=== PATIENT | male | born 1935 | race Hispanic/Latino ===

== ENCOUNTER 2018-09-27 14:39 | Inpatient (IN) | payer MEDICARE ==
[2018-09-27 14:40] VITALS: BMI 22.1
--- NOTE | 2018-09-27 15:15 | C.PDOC ---
History Of Present Illness 83 year old male presents with new onset neck mass for the past one month. Patient states it was "totally normally" a month ago, now a rapidly growing mass. He denies any pain, reports being able to eat solid food and drink without difficulty. Denies weight loss, SOB, difficulty breathing. Patient reports using unknown "thyroid supplement" and "wave emitting machine" without any improvement. Patient is a nonsmoker. NEW ONSET NECK MASS X 1 MO. PS WAS "TOTALLY NORMALLY" A MONTH AGO, NOW RAPIDLY GROWING MASS. PT DENIES PAIN. ABLE TO EAT SOLID FOOD AND DRINK WO DIFF. NO WT LOSS. DENIES SOB, DIFF BREATHING. PS USING UNK "THYROID SUPPLEMENTS" AND "WAVE EMITTING MACHINE" WO IMPROVE. NO SMOKER EXAM NONTOXIC NAD HEENT DIFFUSE POOR DENTITION NECK +ANTERIOR LAT L NECK MASS SOFTBALL SIZE, SOFT. NONADHERENT. NONPULSATILE. NONTENDER. NO STRIDOR, DROOL. FULL ROM WO DIFF REMAINDER NEG Time Seen by Provider: 09/27/18 15:01 Chief Complaint (Nursing): Abnormal Skin Integrity History Per: Patient History/Exam Limitations: no limitations Onset/Duration Of Symptoms: Days Current Symptoms Are (Timing): Still Present Recent travel outside of the [place]: No Past Medical History Reviewed: Historical Data, Nursing Documentation, Vital Signs Vital Signs: Last Vital Signs Temp 98.8 F 09/27/18 14:42 Pulse 102 H 09/27/18 14:42 Resp 18 09/27/18 14:42 BP 162/92 H 09/27/18 14:42 Pulse Ox 96 09/27/18 14:42 Primary Care Provider: FAMILY PROVIDER,NO - Medical History PMH: Benign Prostatic Hyperplasia Denies: Diabetes - [facility] Procedures ENDOSC POLYPECTOMY OF LG INTEST (05/24/13) INJECT/INFUSE NEC (05/24/13) INSERT INDWELLING CATH (01/04/15) PACKED CELL TRANSFUSION (05/24/13) REMOV URIN DRAINAGE NEC (01/13/15) TETANUS TOXOID ADMINIST (10/26/13) Family History: States: Unknown Family Hx - Social History Hx Tobacco Use: No Hx Alcohol Use: No Hx Substance Use: No - Immunization History Hx Tetanus Toxoid Vaccination: No Hx Influenza Vaccination: No Hx Pneumococcal Vaccination: No Review Of Systems Except As Marked, All Systems Reviewed And Found Negative. Constitutional: Negative for: Weight loss Respiratory: Negative for: Shortness of Breath, Other (Difficulty breathing) Musculoskeletal: Positive for: Other (Neck mass). Negative for: Neck Pain Physical Exam - Physical Exam Appears: Non-toxic Skin: Normal Color, Warm Head: Atraumatic, Normacephalic Eye(s): bilateral: Normal Inspection Ear(s): Bilateral: Normal Nose: Normal Oral Mucosa: Moist, No Drooling Teeth: Other (Diffuse poor dentition) Throat: Normal, No Erythema, No Exudate Neck: Other (Positive anterior lateral left sided mass softball size, soft, nonadherent, nonpulsatile, nontender. Full ROM without difficulty) Chest: Symmetrical, No Tenderness Cardiovascular: Rhythm Regular Respiratory: Normal Breath Sounds, No Accessory Muscle Use, No Rales, No Rhonchi, No Stridor, No Wheezing Gastrointestinal/Abdominal: Soft, No Tenderness Neurological/Psych: Oriented x3, Normal Speech ED Course And Treatment - Laboratory Results Result Diagrams: 09/27/18 15:26 09/27/18 15:26 ECG: Interpreted By Hi ECG Rhythm: Sinus Rhythm ECG Interpretation: Normal Rate From EC O2 Sat by Pulse Oximetry: 96 (Room air) Pulse Ox Interpretation: Normal - Radiology CXR: Interpreted by Hi CXR Interpretation: Yes: No Acute Disease Progress - Re-Evaluation Re-evaluation Note: 09/27/18 17:07 EXAM UNCH FROM INITIAL. ELIAS PHELAN PT AGREES W PLAN. D/W DR URSULA HANCOCK TELEMARKETER WILL ADMIT - Data Reviewed Data Reviewed: Lab, Diagnostic imaging, EKG, Old records Medical Decision Making Medical Decision Making: Plan: * CT Neck soft tissue * Blood work * CXR Disposition Counseled Patient/Family Regarding: Studies Performed, Diagnosis - Disposition Disposition: HOSPITALIZED Disposition Time: 17:07 Condition: STABLE - POA Present On Arrival: None - Clinical Impression Clinical Impression: Neck mass - Scribe Statement The provider has reviewed the documentation as recorded by the Scribgianni Colunga All medical record entries made by the Scribe were at my direction and personal ly dictated by me. I have reviewed the chart and agree that the record accurately reflects my personal performance of the history, physical exam, medical decision making, and the department course for this patient. I have also personally directed, reviewed, and agree with the discharge instructions and disposition.
[2018-09-27 15:29] LABS: BASO # 0.1 K/uL (0.0-0.2); EOS # 0.1 K/uL (0.0-0.7); EOS % 0.8 % (0.0-4.0); HEMOGLOBIN 10.9 g/dL (12.0-18.0); LYMPH # 1.5 K/uL (1.0-4.3); LYMPH % 16.2 % (20.0-40.0); MEAN CELL VOLUME 73.2 fL (80.0-94.0); MEAN CORPUSCULAR HEMOGLOBIN 23.5 pg (27.0-31.0); MEAN CORPUSCULAR HGB CONC 32.1 g/dL (33.0-37.0); MEAN PLATELET VOLUME 9.1 fL (7.2-11.7); MONO # 0.8 K/uL (0.0-0.8); MONO % 9.2 % (0.0-10.0); NEUT # 6.7 K/uL (1.8-7.0); NEUT % 72.8 % (50.0-75.0); RBC 4.63 Mil/uL (4.40-5.90); RED CELL DISTRIBUTION WIDTH 16.4 % (11.5-14.5); WHITE BLOOD COUNT 9.2 K/uL (4.8-10.8)
[2018-09-27 15:37] LABS: INR 1.1; PARTIAL THROMBOPLASTIN TIME 27.6 SECONDS (21-34); PROTHROMBIN TIME 12.5 SECONDS (9.7-12.2)
[2018-09-27 15:42] LABS: ALB/GLOB RATIO 1.4 (1.0-2.1); ALBUMIN 4.4 g/dL (3.5-5.0); CALCIUM 9.2 mg/dl (8.6-10.4)
[2018-09-27 15:44] LABS: VENOUS BLOOD GAS BASE EXCESS 1.7 mmol/L (0.0-2.0); VENOUS BLOOD GAS PCO2 42 mmHg (40-60); VENOUS BLOOD GAS PO2 39 mm/Hg (30-55); VENOUS BLOOD PH 7.41 (7.32-7.43)
[2018-09-27 15:58] LABS: FREE T4 1.1 ng/dL (0.78-2.19)
[2018-09-27] MEDS ORDERED: Iodixanol 320 MG/ML 100 ML BOTTLE IV ONE (16:17)
--- NOTE | 2018-09-27 17:00 | CT ---
Date of service: 09/27/2018 PROCEDURE: CT NECK WITH CONTRAST HISTORY: L NECK MASS COMPARISON: None available. TECHNIQUE: CT of the neck with intravenous contrast. Coronal and sagittal reformats generated. Intravenous contrast dose: 100 mL of Visipaque 320 intravenously. Radiation dose: Total exam DLP = 541.95 mGy-cm. This CT exam was performed using one or more of the following dose reduction techniques: Automated exposure control, adjustment of the mA and/or kV according to patient size, and/or use of iterative reconstruction technique. FINDINGS: NASOPHARYNX: Unremarkable. SUPRAHYOID NECK: The suprahyoid neck is displaced to the right by large left neck mass. Otherwise unremarkable oropharynx, oral cavity, parapharyngeal space and retropharyngeal space. INFRAHYOID NECK: The infrahyoid neck is also displaced to the right by left neck mass. Otherwise unremarkable larynx, hypopharynx, and supraglottic space. Vocal cords intact. MASS: There is a large heterogeneous mass lesion contains enhancing solid component and heterogeneous low attenuation components extending from the left clavicle to left upper neck submental region measures 11.5 centimeter in the longitudinal diameter 13.2 centimeter in the largest AP diameter and 10.8 centimeter in the transverse diameter. The mass is crossing the midline at the level of the thyroid cartilage. There are prominent vessels in the peripheral and central portion of the mass. This mass is separate from the parotid submandibular glands and separate from the thyroid gland. GLANDS: Parotid and submandibular glands unremarkable. Normal size thyroid gland, without nodule. LYMPH NODES: No evidence of significant lymphadenopathy in the neck. CERVICAL SPINE: No fracture or focal lesion. VASCULAR STRUCTURES: Unremarkable. OTHER FINDINGS: None. IMPRESSION: Large heterogeneous enhancing mass in the left neck extending from the left clavicle to the left submental region contains slightly prominent vessels especially in the peripheral lateral aspect of the mass. This mass displaced the carotid arteries and the larynx and pharynx to the right. The mass is separate from the submandibular and parotid gland as well as from the left thyroid lobe. No evidence of significant lymphadenopathy in the neck. The upper airway is displaced to the right but otherwise patent.
--- NOTE | 2018-09-27 17:52 | RAD ---
Date of service: 09/27/2018 HISTORY: SOB COMPARISON: 05/25/2014 TECHNIQUE: Chest PA and lateral views FINDINGS: LUNGS: No evidence of new infiltrate or consolidation in the lungs. PLEURA: No significant pleural effusion identified. No pneumothorax apparent. CARDIOVASCULAR: No aortic atherosclerotic calcification present. Normal cardiac size. No pulmonary vascular congestion. OSSEOUS STRUCTURES: No significant abnormalities. VISUALIZED UPPER ABDOMEN: Normal. OTHER FINDINGS: None. IMPRESSION: No active disease.
[2018-09-27 18:54] VITALS: RESP 20
[2018-09-27] MEDS: ceFAZolin 1 GM in Sodium Chloride 0.9% 100 ML IVPB SCH (22:04)
[2018-09-28] MEDS: ceFAZolin 1 GM in Sodium Chloride 0.9% 100 ML IVPB SCH ×3 (05:00→21:15)
[2018-09-28] MEDS: Enoxaparin 30 mg Syringe SC SCH (10:53)
--- NOTE | 2018-09-28 22:00 | CP.PCM.HP ---
Present on Admission - Present on Admission Any Indicators Present on Admission: No Past Patient History - Past Medical History & Family History Past Medical History?: No - Past Social History Smoking Status: Never Smoked - MUSCULOSKELETAL/RHEUMATOLOGICAL Hx Falls: No - GENITOURINARY/GYNECOLOGICAL Hx Prostate Problems: Yes (ELEVATED PSA,BENIGN BIOPSY) - PSYCHIATRIC Hx Psychophysiologic Disorder: No Hx Substance Use: No - SURGICAL HISTORY Hx Surgeries: No - ANESTHESIA Hx Anesthesia: No Hx Anesthesia Reactions: No Hx Malignant Hyperthermia: No Has any member of the family had a problem w/ anesthesia?: No Meds Allergies/Adverse Reactions: Allergies Allergy/AdvReac Type Severity Reaction Status Date / Time No Known Allergies Allergy Verified 09/27/18 14:46 Results - Vital Signs Recent Vital Signs: Last Vital Signs Temp 98.4 F 09/28/18 16:00 Pulse 67 09/28/18 16:00 Resp 20 09/28/18 16:00 BP 148/79 09/28/18 16:00 Pulse Ox 97 09/28/18 16:00 - Labs Result Diagrams: 09/27/18 15:26 09/27/18 15:26
[2018-09-29] MEDS: ceFAZolin 1 GM in Sodium Chloride 0.9% 100 ML IVPB SCH (05:25)
--- NOTE | 2018-09-29 07:02 | HP ---
CHIEF COMPLAINT: Swelling in the neck for one month. HISTORY OF PRESENT ILLNESS: This is an 83-year-old white male who was previously healthy with no significant past medical history. A month ago, he was fine with no problem. Now, he has a rapidly growing mass in the left side of the neck and entire anterior neck. He denies any pain. He denies any history of injury to the neck. He denies any fever, chills, or rigors. He denies any history of weight loss. He denies any pain in the mass. He denies any nausea, vomiting, or diarrhea. He denies any polyuria, polydipsia, or polyphagia. He denies any weight loss. He denies any hematuria or pyuria. He denies any history of itchy eyes or itchy nose. He denies abdominal pain, nausea, vomiting, or diarrhea. PAST MEDICAL HISTORY: Nothing significant. SOCIAL HISTORY: Nonsmoker. Non EtOH user. CURRENT MEDICATIONS: None. FAMILY HISTORY: Noncontributory. PHYSICAL EXAMINATION: GENERAL: An elderly male, in no distress. VITAL SIGNS: Blood pressure 148/79, pulse 67, respiratory rate 20, temperature 98.4. SKIN: Normal. HEENT: Atraumatic, normocephalic. Negative pallor. Negative jaundice. Extraocular movements are intact. NECK: Supple. The patient has a large mass, which is in the size of a tennis ball, which is circular on left anterior neck, which is soft, which is compressible, nontender, no solid structure, no tenderness, no redness. CHEST WALL: Bilateral symmetrical expansion. LUNGS: Clear. No rales. No rhonchi. CARDIOVASCULAR SYSTEM: S1 and S2, regular. ABDOMEN: Soft and nontender. Bowel sounds are positive. RECTAL: Negative. EXTREMITIES: Normal. CENTRAL NERVOUS SYSTEM: Normal. ASSESSMENT: 1. Neck mass, rule out obstructed salivary duct with salivary gland swelling due to retention of the saliva, rule out sebaceous cyst. 2. Anemia. PLAN: Admit. Detailed orders are written. Seen and examined. Benson Mccray MD [facility] # [id number]
[2018-09-29 08:32] VITALS: BP 141/82; PULSE 77; TEMP 97.8; O2SAT 95
[2018-09-29] MEDS: Enoxaparin 30 mg Syringe SC SCH (11:08)
--- NOTE | 2018-09-29 11:48 | CP.PCM.PN ---
Subjective - Date & Time of Evaluation Date of Evaluation: 09/29/18 Time of Evaluation: 11:48 - Subjective Subjective: alert, orientedx3, has large neck mass, no respiratory distress. Objective - Vital Signs/Intake and Output Vital Signs (last 24 hours): Temp Pulse Resp BP Pulse Ox 97.8 F 77 20 141/82 95 09/29/18 08:31 09/29/18 08:31 09/29/18 08:31 09/29/18 08:31 09/29/18 08:31 Intake and Output: 09/29/18 09/29/18 06:59 18:59 Intake Total 1100 Output Total 1200 Balance -100 - Medications Medications: Current Medications Acetaminophen (Tylenol 325mg Tab) 650 mg PO Q6 PRN PRN Reason: Pain, moderate (4-7) Enoxaparin Sodium (Lovenox) 30 mg SC DAILY [facility] Last Admin: 09/29/18 11:08 Dose: 30 mg Cefazolin Sodium 1 gm/ Sodium (Chloride) 100 mls @ 100 mls/hr IVPB Q8H [facility]; Protocol Last Admin: 09/29/18 05:25 Dose: 100 mls/hr Pneumococcal Polyvalent Vaccine (Pneumovax 23 Vaccine) 0.5 ml IM .ONCE ONE Stop: 09/30/18 10:01 - Labs Labs: 09/27/18 15:26 09/27/18 15:26 PT 12.5 SECONDS (9.7-12.2) H 09/27/18 15:26 INR 1.1 09/27/18 15:26 APTT 27.6 SECONDS (21-34) 09/27/18 15:26 Assessment and Plan - Assessment and Plan (Free Text) Assessment: 83 year old male with a rapidly growing neck mass, seen and examined. Alert and orientedx3, denies acute pain or distress. Seen by DR Hylton, refferred to the specialist for surgery. Discussed with DR Mccray, plan to discharge home, advised to follow up with the recommended doctor as soon as possible.
[2018-09-29] MEDS ORDERED: Pneumococcal 23-Valent Vaccine IM ONE (12:15)
--- NOTE | 2018-09-29 22:15 | CP.PCM.DIS ---
Provider - Provider Date of Admission: 09/27/18 17:08 Attending physician: Benson Mccray MD Consults: 09/27/18 17:09 Physician Consult Routine Comment: *pmd REQUEST Consulting Provider: Jacky Hylton Consulting Physician: Jacky Hylton Reason for Consult: NECK MASS 09/27/18 17:15 Case Management Referral ONCE Comment: Physician Instructions: Reason For Exam: Reason for Referral: Discharge Planning Time Spent in preparation of Discharge (in minutes): 30 Hospital Course - Lab Results Lab Results: Most Recent Lab Values WBC 9.2 K/uL (4.8-10.8) 09/27/18 15: RBC 4.63 Mil/uL (4.40-5.90) 09/27/18 15: Hgb 10.9 g/dL (12.0-18.0) L 09/27/18 15: Hct 33.8 % (35.0-51.0) L 09/27/18 15: MCV 73.2 fL (80.0-94.0) L D 09/27/18 15:26 MCH 23.5 pg (27.0-31.0) L 09/27/18 15: MCHC 32.1 g/dL (33.0-37.0) L 09/27/18 15: RDW 16.4 % (11.5-14.5) H 09/27/18 15:26 Plt Count 340 K/uL (130-400) D 09/27/18 15: MPV 9.1 fL (7.2-11.7) 09/27/18 15: Neut % (Auto) 72.8 % (50.0-75.0) 09/27/18 15: Lymph % (Auto) 16.2 % (20.0-40.0) L 09/27/18 15: [place] % (Auto) 9.2 % (0.0-10.0) 09/27/18 15: Eos % (Auto) 0.8 % (0.0-4.0) 09/27/18: Baso % (Auto) 1.0 % (0.0-2.0) 09/27/18 15: Neut # (Auto) 6.7 K/uL (1.8-7.0) 09/27/18 15:26 Lymph # (Auto) 1.5 K/uL (1.0-4.3) 09/27/18 15: [place] # (Auto) 0.8 K/uL (0.0-0.8) 09/27/18 15:26 Eos # (Auto) 0.1 K/uL (0.0-0.7) 09/27/18 15: Baso # (Auto) 0.1 K/uL (0.0-0.2) 09/27/18 15:26 PT 12.5 SECONDS (9.7-12.2) H 09/27/18 15: INR 1.1 09/27/18 15:26 APTT 27.6 SECONDS (21-34) 09/27/18 15:26 pO2 39 mm/Hg (30-55) 09/27/18 15:35 VBG pH 7.41 (7.32-7.43) 09/27/18 15:35 VBG pCO2 42 mmHg (40-60) 09/27/18 15:35 VBG HCO3 25.6 mmol/L 09/27/18 15:35 VBG Total CO2 27.9 mmol/L (22-28) 09/27/18 15:35 VBG O2 Sat (Calc) 76.7 % (40-65) H 09/27/18 15:35 VBG Base Excess 1.7 mmol/L (0.0-2.0) 09/27/18 15:35 VBG Potassium 4.2 mmol/L (3.6-5.2) 09/27/18 15:35 Sodium 138.0 mmol/l (132-148) 09/27/18 15:35 Chloride 105.0 mmol/L (98-107) 09/27/18 15:35 Glucose 103 mg/dl (75-110) 09/27/18 15:35 Lactate 1.1 mmol/L (0.7-2.1) 09/27/18 15:35 Sodium 138 mmol/L (132-148) 09/27/18 15:26 Potassium 4.4 mmol/L (3.6-5.2) 09/27/18 15:26 Chloride 101 mmol/L (98-107) 09/27/18 15:26 Carbon Dioxide 26 mmol/L (22-30) 09/27/18 15:26 Anion Gap 15 (10-20) 09/27/18 15:26 BUN 22 mg/dL (9-20) H 09/27/18 15:26 Creatinine 1.5 mg/dL (0.8-1.5) 09/27/18 15:26 Est GFR ( Amer) 54 09/27/18 15:26 Est GFR (Non-Af Amer) 45 09/27/18 15:26 Random Glucose 108 mg/dL (75-110) 09/27/18 15:26 Calcium 9.2 mg/dl (8.6-10.4) 09/27/18 15:26 Total Bilirubin 0.4 mg/dL (0.2-1.3) 09/27/18 15:26 AST 24 U/L (17-59) 09/27/18 15:26 ALT 25 U/L (21-72) 09/27/18 15:26 Alkaline Phosphatase 74 U/L (38-126) 09/27/18 15:26 Total Protein 7.6 g/dL (6.3-8.3) 09/27/18 15:26 Albumin 4.4 g/dL (3.5-5.0) 09/27/18 15:26 Globulin 3.2 gm/dL (2.2-3.9) 09/27/18 15:26 Albumin/Globulin Ratio 1.4 (1.0-2.1) 09/27/18 15:26 Free T4 1.10 ng/dL (0.78-2.19) 09/27/18 15:26 TSH 3rd Generation 2.12 mIU/L (0.46-4.68) 09/27/18 15:26 Venous Blood Potassium 4.2 mmol/L (3.6-5.2) 09/27/18 15:35 Discharge Plan - Follow Up Plan Condition: STABLE Disposition: HOME/ ROUTINE Additional Instructions: follow up the specialist DIONNA as advised by DR Hylton continue with present medications Referrals: Jacky Hylton MD [Staff Provider] - Benson Mccray MD [Staff Provider] -
--- NOTE | 2018-09-29 22:43 | CON ---
DATE: 09/29/2018 REASON FOR CONSULTATION: Neck mass. HISTORY OF PRESENT ILLNESS: This is an 83-year-old male who claims to have a neck mass for one month. It is constant, very large in size. No pain. No hoarseness. PAST MEDICAL HISTORY: As noted in chart by me. MEDICATIONS: As noted in chart by me. ALLERGIES: NOTED IN THE CHART BY ME. PHYSICAL EXAMINATION: HEAD: Atraumatic, normocephalic. FACE: Good facial movements bilaterally. CONSTITUTIONAL: Well fed, well nourished. COMMUNICATION: Communicates well and appropriately. EXTERNAL NOSE AND EARS: No masses, no lesions, no erythema, no edema. INTERNAL NOSE AND EARS: Deviated septum. No masses, no lesions, no erythema, no edema. ORAL CAVITY AND OROPHARYNX: No masses, no lesions, no erythema, no edema. LIPS AND GUMS: No masses, no lesions, no erythema, no edema. NECK: There is a large neck mass about 10 cm x 12 cm in size on the left side, extending from the level of the mandible all the way down to the area of the clavicle. It is soft. LYMPH NODES: No lymphadenopathy of the neck. THYROID: No thyromegaly. No goiter. ASSESSMENT: 1. Neck mass. 2. Deviated septum. PLAN: CAT scan was reviewed by me. This shows a mass consistent with a cyst on the left side. The patient was given Dr. Jose Luis Parish office number to call him in order to schedule and appointment to see him to have this removed. I also contacted Dr. Bhatti and gave them the patient's name and number, so his office can also call him and arrange for this to be removed. The patient agrees to follow up with Dr. Bhatti as an outpatient for removal. Jacky Hylton MD
--- NOTE | 2018-09-30 05:05 | DS ---
DISCHARGE DIAGNOSES: 1. Cyst in the neck. 2. Anemia. HOSPITAL COURSE: This is an 83-year-old white male never been sick before. One month ago, he developed cyst in the anterior portion of left side of the neck. The patient did not seek any medical attention until the day of admission he was admitted to the floor. Workup showed it is a cystic structure. The patient was seen by ENT, and ENT arranged a surgeon at [facility] to extract this mass. The patent was given appointment. The patient was given information about the surgeon, and surgeon's office also contacted the patient to schedule surgery. The patient is for discharge. Condition upon discharge is stable. He will be followed up as outpatient because he will need followup for anemia. It seems like iron deficiency, and the patient will be monitored closely. Benson Mccray MD
--- NOTE | 2018-09-30 07:37 | CARD ---
APPROVED REPORT Date of service: 09/27/2018 EKG Measurement Heart [id number] <Conclusion> Normal sinus rhythm Anteroseptal infarct, age undetermined Abnormal ECG
[2018-09-30] MEDS ORDERED: Pneumococcal 23-Valent Vaccine IM ONE (10:00)
== END 2018-09-29 13:14 | disposition home or self-care (01) | DRG 607 ==
LOC: C.ER 14:39 → C.3T 17:08
PROVIDERS: ADMIT Internal Medicine; ATTEND Internal Medicine
DX: R22.1 Localized swelling, mass and lump, neck (principal); J34.2 Deviated nasal septum; D64.9 Anemia, unspecified; N40.0 Benign prostatic hyperplasia without lower urinary tract symptoms